=== PATIENT | female | born 1990 | race Asian ===

== ENCOUNTER 2020-06-13 08:00 | Outpatient (CLI) | payer BC ==
--- NOTE | 2020-06-14 09:16 | NM ---
RADIOIODINE THYROID UPTAKE AND SCAN: HISTORY: Nontoxic diffuse goiter RADIOPHARMACEUTICAL: 250 uCi [id number] administered orally FINDINGS: Planar anterior and both anterior oblique images of the thyroid gland were obtained. There is homogeneous tracer distribution to both lobes of the thyroid gland without focal cold or hot nodules. The 24-hour uptake measures 21 % (normal 10-30%). IMPRESSION: Normal exam
== END 2020-06-13 08:01 | disposition home or self-care (01) ==
LOC: NM 08:00
PROVIDERS: ATTEND Orthopaedic Surgery
DX: E04.0 Nontoxic diffuse goiter (principal)
CPT/HCPCS: 78014; A9516